=== PATIENT | female | born 1990 | race Caucasian/White ===

== ENCOUNTER 2023-12-02 15:13 | Emergency (ER) | payer OTHER, SELFPAY ==
[2023-12-02 15:19] VITALS: BP 118/73; PULSE 69; O2SAT 100; BMI 19.5
[2023-12-02] MEDS: ACETAMINOPHEN 500 MG TABLET 1000 MG PO (15:52)
[2023-12-02] MEDS: LIDOCAINE HCL 1% 100 MG/10 ML MDV INJ (15:53)
[2023-12-02] MEDS: SURGIFOAM GEL SPONGE SIZE 100 1 EACH TOPICAL (15:53)
[2023-12-02] MEDS: ADACEL DIPH,PERTUSS(ACELL),TET VAC/PF 0.5 ML ADULT SYRINGE IM (15:56)
--- NOTE | 2023-12-02 15:56 | ED_ITS ---
HPI HPI - General Adult General Chief complaint: Extremity Injury, Upper Stated complaint: UE INJURY Time Seen by Provider: 12/02/23 15:19 Source: patient Mode of arrival: walk-in Limitations: no limitations History of Present Illness HPI narrative: 33-year-old female presents here with a chief complaint of an avulsion tip to the right ring finger. 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 She cut the distal tip of her finger. Small amount of bleeding is noted. She is uncertain how many years ago she had her last tetanus. Patient has no other injuries. She is right-hand dominant Related Data Home Medications ?Medication ?Instructions ?Recorded ?Confirmed No Known Home Medications 12/02/23 12/02/23 Previous Rx's ?Medication ?Instructions ?Recorded cephalexin 500 mg capsule 500 mg PO BID 7 days #14 caps 12/02/23 Allergies Allergy/AdvReac Type Severity Reaction Status Date / Time No Known Drug Allergies Allergy Verified 12/02/23 15:24 Opioid HPI Opioid Management Most Recent Opioid Data: Last NOV Pain Assessment 12/02/23 15:52 Review of Systems 2 ROS Narrative All Systems are negative except as noted/marked.All systems reviewed and otherwise negative Exam Narrative Exam Narrative: Nurses note and vital signs reviewed and patient is not hypoxic. General: The patient appears well and in no apparent distress. Patient is resting comfortably on cart. Skin: Warm, dry, no pallor noted. There is no rash noted. Head: Normocephalic, atraumatic Eye: Normal conjunctiva, no drainage, EOMI. PERRL Ears, Nose, Mouth, and Throat: oral mucosa is moist. Nares patent. Mouth without vesicles. Ear canals patent. Tm's without Erythema Cardiovascular: Regular Rate and Rhythm Respiratory: Patient is in no distress, no accessory muscle use, lungs are clear to auscultation, no wheezing, rales or rhonchi Musculoskeletal: Accidental distal fingertip avulsion of the right ring finger, superficial, active bleeding,The patient has no evidence of calf tenderness, no pitting edema, symmetrical pulses noted bilaterally Neurological: A&O x4, normal speech Psychiatric: Cooperative Constitutional Vital Signs, click to edit/add: Last Vital Signs Pulse 69 12/02/23 15:19 Resp 20 12/02/23 15:19 BP 118/73 12/02/23 15:19 Pulse Ox 100 12/02/23 15:19 O2 Del Method Room Air 12/02/23 15:19 Course Vital Signs Vital signs: Vital Signs Pulse Rate 69 12/02/23 15:19 Respiratory Rate 20 12/02/23 15:19 Blood Pressure 118/73 12/02/23 15:19 Pulse Oximetry 100 12/02/23 15:19 Oxygen Delivery Method Room Air 12/02/23 15:19 Pulse Rate 69 12/02/23 15:19 Respiratory Rate 20 12/02/23 15:19 Blood Pressure 118/73 12/02/23 15:19 Pulse Oximetry 100 12/02/23 15:19 Oxygen Delivery Method Room Air 12/02/23 15:19 Medical Decision Making MDM Narrative Medical decision making narrative: 33-year-old female presents here with a chief complaint of an avulsion tip to the right ring finger. 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 She cut the distal tip of her finger. Small amount of bleeding is noted. She is uncertain how many years ago she had her last tetanus. Patient has no other injuries. She is right-hand dominant. Right ring finger was soaked in Hibiclens normal saline cleaned well. Patient is right ring finger was digitally blocked with 1% lidocaine x 2 cc. Gelfoam was applied to the distal tip with pressure. Bleeding did cease. Dressing is applied. Patient be discharged home. She will be placed on Keflex.Patient instructed to follow-up with Medical Records Medical records reviewed: Yes I reviewed the patient's medical records Lab Data Lab results reviewed: Yes I reviewed the patient's lab results Discharge Plan Discharge Stand Alone Forms: Portal Instructions Chief Complaint: Extremity Injury, Upper Clinical Impression: Avulsion, finger tip Patient Disposition: Home, Self-Care Time of Disposition Decision: 15:59 Condition: Good Prescriptions / Home Meds: New cephalexin 500 mg capsule 500 mg PO BID 7 Days Qty: 14 0RF No Action No Known Home Medications Print Language: Pakistani Instructions: Finger Laceration (ED), Skin Avulsion (ED) Additional Instructions: follow up with occupational health [phone] Referrals: CHRIS YA [Primary Care Provider] - 1 week
== END 2023-12-02 16:11 | disposition home or self-care (01) ==
PROVIDERS: Emergency Provider Emergency Medicine; PCP Nurse Practitioner
DX: S61.204A Unspecified open wound of right ring finger without damage to nail, initial encounter (principal); W26.8XXA Contact with other sharp object(s), not elsewhere classified, initial encounter; Z23 Encounter for immunization
CPT/HCPCS: 64450; 90471; 90715; 99284